=== PATIENT | female | born 1995 | race African-American/Black ===

== ENCOUNTER 2017-10-06 15:22 | Emergency (ER) | payer OTHER ==
--- NOTE | 2017-10-06 15:48 | ER Document Report ---
ED Medical Screen (RME) - General Chief Complaint: Vag Bleeding, +preg <12wks Stated Complaint: VAGINAL BLEEDING, ABDOMINAL PAIN Time Seen by Provider: 10/06/17 15:42 Notes: RME DISCLOSURE I have seen this patient as part of a Rapid Medical Evaluation and, if applicable, placed any initially appropriate orders. The patient will be seen and fully evaluated, including a full history and physical exam, by a provider ( in Main ED or Fast Track) when a room becomes available. 22-year-old female approximately 8 weeks by last menstrual period here with complaints of lower abdominal cramping and vaginal spotting ongoing for the past few days. She has not yet had an ultrasound or OB follow- up visit. TRAVEL OUTSIDE OF THE [place] IN LAST 30 DAYS: No - Related Data Allergies/Adverse Reactions: No Known Allergies Allergy (Verified 10/06/17 15:37) Past Medical History - Social History Chew tobacco use (# tins/day): No Frequency of alcohol use: None Drug Abuse: None Renal/ Medical History: Denies: Hx Peritoneal Dialysis Physical Exam - Vital signs Vitals: Temp Pulse Resp BP Pulse Ox 98.9 F 106 H 18 119/91 H 99 10/06/17 15:26 10/06/17 15:26 10/06/17 15:26 10/06/17 15:26 10/06/17 15:26 Course - Vital Signs Vital signs: Temp Pulse Resp BP Pulse Ox 98.9 F 106 H 18 119/91 H 99 10/06/17 15:26 10/06/17 15:26 10/06/17 15:26 10/06/17 15:26 10/06/17 15:26
--- NOTE | 2017-10-06 16:10 | ER Document Report ---
ED GI/ - General Chief Complaint: Vag Bleeding, +preg <12wks Stated Complaint: VAGINAL BLEEDING, ABDOMINAL PAIN Time Seen by Provider: 10/06/17 15:42 Notes: Patient is a 8 week 22 year old female who presents to the ED complaining of vaginal spotting and cramping that started on Tuesday. She describes the amount of bleeding as light spotting and has not gone through a whole pad an hour. States that she primarily notices it when she wipes after going to the bathroom. States that the cramping started today. But is a 1 out of 5 in severity. She was referred to the emergency department by her BUSINESS SUPPORT ASSOCIATE and has a follow-up appointment tomorrow. Otherwise healthy female. Denies any previous BUSINESS SU[employer] ASSOCIATE history. Denies any pyuria, hematuria, vaginal discharge, pelvic pain, vaginal pain TRAVEL OUTSIDE OF THE [place] IN LAST 30 DAYS: No - Related Data Allergies/Adverse Reactions: No Known Allergies Allergy (Verified 10/06/17 15:37) Past Medical History - Social History Smoking Status: Never Smoker Chew tobacco use (# tins/day): No Frequency of alcohol use: None Drug Abuse: None Family History: Reviewed & Not Pertinent Patient has suicidal ideation: No Patient has homicidal ideation: No Renal/ Medical History: Denies: Hx Peritoneal Dialysis Review of Systems - Review of Systems Constitutional: No symptoms reported. denies: Chills, Fever Cardiovascular: No symptoms reported, Lightheaded. denies: Chest pain, Palpitations Respiratory: No symptoms reported. denies: Cough, Short of breath Gastrointestinal: No symptoms reported. denies: Abdominal pain, Diarrhea, Nausea, Vomiting, Constipation Genitourinary: No symptoms reported. denies: Dysuria, Discharge, Frequency, Flank pain, Hematuria, Urgency Female Genitourinary: See HPI Musculoskeletal: No symptoms reported. denies: Leg swelling, Ankle swelling -: Yes All other systems reviewed and negative Physical Exam - Vital signs Vitals: Temp Pulse Resp BP Pulse Ox 98.9 F 106 H 18 119/91 H 99 10/06/17 15:26 10/06/17 15:26 10/06/17 15:26 10/06/17 15:26 10/06/17 15:26 - Notes Notes: PHYSICAL EXAM GENERAL: Alert, interacts well. HEAD: Normocephalic, atraumatic. EYES: Pupils equal, round, and reactive to light. Extraocular movements intact. ENT: Oral mucosa moist, tongue midline. NECK: Full range of motion. Supple. Trachea midline. LUNGS: Clear to auscultation bilaterally, no wheezes, rales, or rhonchi. No respiratory distress. HEART: Regular rate and rhythm. No murmurs, gallops, or rubs. ABDOMEN: Soft, nondistended, nontender. No guarding, rebound, or rigidity.. Bowel sounds present in all 4 quadrants. EXTREMITIES: Moves all 4 extremities spontaneously. No edema, radial and dorsalis pedis pulses 2/4 bilaterally. No cyanosis. NEUROLOGICAL: Alert and oriented x4. Normal speech. PSYCH: Normal affect, normal mood. SKIN: Warm, dry, normal turgor. No rashes or lesions noted. Course - Re-evaluation Re-evalutation: 10/06/17 17:57 Patient presents with a mild amount of vaginal bleeding in the setting of an early first trimester . Transvaginal ultrasound shows 7-8weeks IUP without a heart rate. Quantitative beta hCG below the margin for 8 weeks gestation at 3679. No active bleeding at time of presentation. She is Rh positive. Patient's abdominal exam is otherwise benign without any focal tenderness. I do not suspect an acute appendicitis, pyelonephritis, cystitis, or bowel obstruction. Patient has an established appointment with her OBGYN tomorrow. At this time will discharge with return precautions and follow-up recommendations. Verbal discharge instructions given a the bedside and opportunity for questions given. Patient is in agreement with this plan and has verbalized understanding of return precautions and the need for primary care follow-up in the next 24-72 hours. - Vital Signs Vital signs: Temp Pulse Resp BP Pulse Ox 98.6 F 87 16 100/60 100 10/06/17 18:17 10/06/17 18:17 10/06/17 18:17 10/06/17 18:17 10/06/17 18:17 - Laboratory Laboratory results interpreted by me: 10/06/17 10/06/17 15:45 15:55 Beta HCG, Quant 3679.30 H Urine Blood LARGE H Ur Leukocyte Esterase MODERATE H - Diagnostic Test Radiology reviewed: Reports reviewed Discharge - Discharge Clinical Impression: Vaginal bleeding Condition: Good Disposition: HOME, SELF-CARE Instructions: Miscarriage Impending ([facility]) Additional Instructions: Please be sure to keep your appointment with your OBGYN tomorrow FOLLOW-UP CARE: If you have been referred to a physician for follow-up care, call the physician s office for an appointment as you were instructed or within the next two days. If you experience worsening or a significant change in your symptoms (very heavy bleeding with large clots of blood, passage of tissue, more severe abdominal / pelvic pain or cramping, feeling faint or severe weakness, fever, etc.), notify the physician immediately or return to the Emergency Department at any time for re-evaluation. OBSTETRIC-GYNECOLOGIC (OB-CHEMICAL LAB TECHNICIAN) [facility] [employer]: [facility] [address] [place] [address] [phone] For active duty and dependents diagnosed with a threatened or miscarriage, you should follow up in the following manner: Standard patients who have a local civilian provider should follow up with that provider. Patients of the Family Practice Clinic should call your Team Nurse at 8: 00 am the following morning for further instructions. If you are neither a Standard patient nor a patient of the Family Practice Clinic, you should follow up at the [facility] ([facility]) . Patients already enrolled in the [facility] OB Clinic, Prime patients not assigned to the Family Practice Clinic, and Active Duty patients not assigned to Family Practice Clinic should report to the [facility] Lab at 8:00 am the next morning that the [facility] is open and then you will be seen in the OB Clinic at 11:00 am. Referrals: [facility] [Provider Group] - Follow up as needed (48-72 hours)
[2017-10-06 16:20] LABS: APPEARANCE,URINE CLEAR; BILIRUBIN,URINE NEGATIVE (NEGATIVE); COLOR,URINE YELLOW; GLUCOSE, URINE NEGATIVE (NEGATIVE); KETONES,URINE NEGATIVE (NEGATIVE); LEUKOCYTE ESTERASE,URINE MODERATE (NEGATIVE); NITRITE,URINE NEGATIVE (NEGATIVE); PROTEIN,URINE NEGATIVE (NEGATIVE); URINE SPECIFIC GRAVITY 1.008; UROBILINOGEN,URINE NEGATIVE mg/dL (<2.0)
--- NOTE | 2017-10-06 17:48 | RADIOLOGY REPORT (SQ) ---
EXAM DESCRIPTION: U/S OB TRANSVAGINAL W/O DOP COMPLETED DATE/TIME: 10/06/2017 5:26 pm REASON FOR STUDY: bleeding; eval ectopic / miscarriage COMPARISON: None. TECHNIQUE: Transvaginal static and realtime grayscale images acquired of the pelvis. Additional neyda cted spectral and color Doppler images recorded. All images stored on PACs. bHCG: Not available LIMITATIONS: None. FINDINGS: FETUS: Living intrauterine . EGA: 7 weeks 2 days FHR: No heart motion was noted. Beats per minute. SUBCHORIONIC BLEED: No. SIZE OF BLEED: Not applicable. UTERUS: No masses or anomalies. 9.5 x 5.7 x 5.1 cm. CERVICAL LENGTH: 3.3 cm. Closed. RIGHT ADNEXA: Ovary not seen. No adnexal free fluid. No adnexal masses. LEFT ADNEXA: 4 x 2.4 x 3.4 cm. There is a 2.3 x 1.9 x 1.7 cm cyst. No adnexal free fluid. No adnexal masses. FREE FLUID: None. OTHER: No other significant finding. IMPRESSION: There is an intrauterine gestation of about 7 weeks 2 days. No heart motion was s een. Trimester of : First - 0 to 13 weeks. TECHNICAL DOCUMENTATION: JOB ID: [id number]- All Rights Reserved Reading location - IP/workstation name: [email or web address]
[2017-10-06 18:24] VITALS: BP 100/60
== END 2017-10-06 18:19 | disposition home or self-care (01) ==
LOC: ER 15:22
DX: O26.851 Spotting complicating pregnancy, first trimester (principal); O26.891 Other specified pregnancy related conditions, first trimester; R10.9 Unspecified abdominal pain
CPT/HCPCS: 36415; 76817; 81001; 84702; 86900; 86901; 99284

== ENCOUNTER 2017-10-06 22:00 | Emergency (ER) | payer OTHER ==
[2017-10-06 23:46] LABS: ABSOLUTE BASOPHILS # (AUTO) 0.1 10^3/uL (0.0-0.2); ABSOLUTE EOSINOPHILS # (AUTO) 0.2 10^3/uL (0.0-0.6); ABSOLUTE LYMPHOCYTES (AUTO) 1.6 10^3/uL (0.5-4.7); ABSOLUTE MONOCYTES (AUTO) 0.7 10^3/uL (0.1-1.4); ABSOLUTE NEUT (AUTO) 10.1 10^3/uL (1.7-8.2); BASOPHILS % (AUTO) 0.4 % (0-2); EOSINOPHILS % (AUTO) 1.6 % (0-6); HEMATOCRIT 39.4 % (36.0-47.0); HEMOGLOBIN 13.1 g/dL (12.0-15.5); LYMPHOCYTES % (AUTO) 12.5 % (13-45); MEAN CORPUSCULAR HGB CONC 33.2 g/dL (32.0-36.0); MEAN CORPUSCULAR VOLUME 91 fl (80-97); MONOCYTES % (AUTO) 5.8 % (3-13); PLATELET COUNT 308 10^3/uL (150-450); RED BLOOD COUNT 4.35 10^6/uL (3.72-5.28); RED CELL DISTRIBUTION WIDTH 13.3 % (11.5-14.0); SEGMENTED NEUTROPHILS % (AUTO) 79.7 % (42-78); TOTAL CELLS COUNTED % (AUTO) 100 %; WHITE BLOOD COUNT 12.7 10^3/uL (4.0-10.5)
--- NOTE | 2017-10-06 23:46 | ER Document Report ---
ED Medical Screen (RME) - General Chief Complaint: Vag Bleeding, +preg <12wks Stated Complaint: POSSIBLE MISCARRIAGE Time Seen by Provider: 10/06/17 23:45 Notes: Patient is a 22-year-old female who returns for impending miscarriage. She states that approximately 9 PM this evening she had worsening cramping, vaginal bleeding and felt like she passed tissue but she did not like the toilet. Her was concerned and decided to bring her back to the emergency department. She states that her cramping is much improved and the bleeding has subsided. TRAVEL OUTSIDE OF THE [place] IN LAST 30 DAYS: No - Related Data Allergies/Adverse Reactions: No Known Allergies Allergy (Verified 10/06/17 15:37) Past Medical History Renal/ Medical History: Denies: Hx Peritoneal Dialysis Physical Exam - Vital signs Vitals: Temp Pulse Resp BP Pulse Ox 98.6 F 100 18 122/75 98 10/06/17 22:05 10/06/17 22:05 10/06/17 22:05 10/06/17 22:05 10/06/17 22:05 Course - Vital Signs Vital signs: Temp Pulse Resp BP Pulse Ox 98.6 F 100 18 122/75 98 10/06/17 22:05 10/06/17 22:05 10/06/17 22:05 10/06/17 22:05 10/06/17 22:05 - Laboratory Result Diagrams: 10/06/17 22:30
--- NOTE | 2017-10-07 00:53 | ER Document Report ---
HPI - HPI Patient complains to provider of: Vaginal bleeding Pain Level: 5 Context: Patient is a 8 week female who returns emergency department with a chief complaint of vaginal bleeding. Patient was seen here earlier by myself and diagnosed with impending miscarriage due to a ultrasound that showed no evidence of a heart rate on an 8 week IUP. She states that her made her return due to the amount of vaginal bleeding. She states that since she passed something pass that her cramping stopped and the bleeding is much less. She states she only notices it when she wipes. States that her cramping is pretty much gone. Denies any fever, lightheadedness or weakness. Past Medical History - Social History Smoking Status: Never Smoker Family History: Reviewed & Not Pertinent Renal/ Medical History: Denies: Hx Peritoneal Dialysis Vertical Provider Document - CONSTITUTIONAL Agree With Documented VS: Yes Notes: PHYSICAL EXAM GENERAL: Alert, interacts well. HEAD: Normocephalic, atraumatic. EYES: Pupils equal, round, and reactive to light. Extraocular movements intact. ENT: Oral mucosa moist, tongue midline. NECK: Full range of motion. Supple. Trachea midline. LUNGS: Clear to auscultation bilaterally, no wheezes, rales, or rhonchi. No respiratory distress. HEART: Regular rate and rhythm. No murmurs, gallops, or rubs. ABDOMEN: Soft, nondistended, nontender. No guarding, rebound, or rigidity.. Bowel sounds present in all 4 quadrants. NEUROLOGICAL: Alert and oriented x4. Normal speech. PSYCH: Normal affect, normal mood. SKIN: Warm, dry, normal turgor. No rashes or lesions noted. - INFECTION CONTROL TRAVEL OUTSIDE OF THE [place] IN LAST 30 DAYS: No Course - Re-evaluation Re-evalutation: Patient is a 22-year-old female who returns emergency department the chief complaint of concern for miscarriage. Her was primarily the reason she came back again given he felt that she lost a lot of blood. She states that her cramping is resolved and that the bleeding has slowed to small spotting. She has had multiple repeat abdominal exams and vital signs checks in the department without any concerns for sepsis, hypovolemic shock. Tolerating p.o. without any difficulty. Patient does have an established follow-up appointment at her [facility] on [address]. At this time patient is declining any additional ultrasound evaluation in the emergency department stating that she will follow up with her OB at her appointment today. Otherwise we did discuss strict return precautions and patient stable for discharge. - Vital Signs Vital signs: Temp Pulse Resp BP Pulse Ox 98.6 F 100 18 122/75 98 10/06/17 22:05 10/06/17 22:05 10/06/17 22:05 10/06/17 22:05 10/06/17 22:05 - Laboratory Result Diagrams: 10/06/17 22:30 Laboratory results interpreted by me: 10/06/17 10/06/17 22:30 22:30 WBC 12.7 H Seg Neutrophils % 79.7 H Lymphocytes % 12.5 L Absolute Neutrophils 10.1 H Beta HCG, Quant 2615.50 H Discharge - Discharge Clinical Impression: Miscarriage Condition: Good Disposition: HOME, SELF-CARE Additional Instructions: Please be sure to follow-up with your [facility] [facility] as scheduled on October 07. If you are not able to follow-up with her [facility] please return to the emergency department for a repeat transvaginal ultrasound. Please return with any fever, worsening vaginal bleeding, worsening abdominal pain, vaginal pain or any symptoms worrisome to you Forms: Parent Work Note
[2017-10-07 00:59] VITALS: BP 113/64
== END 2017-10-07 00:58 | disposition home or self-care (01) ==
LOC: ER 22:00
DX: O03.9 Complete or unspecified spontaneous abortion without complication (principal)
CPT/HCPCS: 36415; 84702; 85025; 99284